=== PATIENT | male | born 1995 | race American Indian/Alaskan Native ===

== ENCOUNTER 2018-08-14 08:11 | Emergency (ER) | payer SELFPAY ==
[2018-08-14 08:15] VITALS: BP 113/78
[2018-08-14] MEDS ORDERED: NORCO 5/325 PO ONE (08:45)
--- NOTE | 2018-08-14 08:45 | Emergency Department Report ---
Earache (Pediatric) - HPI Chief Complaint: Earache Stated Complaint: EAR PAIN Time Seen by Provider: 08/14/18 08:44 Duration: 2 Days Location: Right Severity: Mild Symptoms: No URI, No Sore Throat, No Trauma to EAC, No History of Moisture in Ear, No Fever, No Vomiting, No Cough, No Shortness of Breath Other History: 22 year old comes to er with right ear pain. no fever. no cough, cold, congestion. no trauma. non toxic, ambulatory and without fever. ED Review of Systems ROS: Stated complaint: EAR PAIN Other details as noted in HPI Comment: All other systems reviewed and negative ENT: as per HPI, ear pain Pediatric Past Medical History - Chronic Health Problems Hx Asthma: No Hx Diabetes: No Hx HIV: No Hx Renal Disease: No Hx Sickle Cell Disease: No Hx Seizures: No - Immunizations Immunizations Up to Date: Yes Peds Earache exam - Exam General: Vital signs noted. No distress. Alert and acting appropriately. HEENT: Yes Moist Mucous Membranes, No Pharyngeal Erythema, No Pharyngeal Exudates, No Rhinorrhea, No Conjuctival Injection, No Frontal Tenderness, No Maxillary Tenderness Ear: Right TM Erythema, Right EAC Pain, Right Cerumen Impaction Peds Neck exam: Adenopathy: No, Supple: Yes Peds Lung exam: Good Air Exchange: Yes, Wheezes: No, Stridor: No, Cough: No, Nasal Flaring: No, Retractions: No, Use of Accessory Muscles: No Heart: Yes Regular, No Murmur Peds abdomen: Abdominal Tenderness: No, Peritoneal Signs: No, Normal Bowel Sounds: Yes, Distention: No Peds Skin Exam: Rash: No, Eczema: No Neurologic: Alert and oriented, no deficits. Musculoskeletal: Unremarkable. ED Course Vital Signs 08/14/18 08:14 Temperature 98.2 F Pulse Rate 79 Respiratory 18 Rate Blood Pressure 113/78 [Right] O2 Sat by Pulse 100 Oximetry ED Medical Decision Making - Medical Decision Making Vital Signs 08/14/18 08/14/18 08:14 08:58 Temperature 98.2 F Pulse Rate 79 Respiratory 18 14 Rate Blood Pressure 113/78 [Right] O2 Sat by Pulse 100 Oximetry irrigated ear dc home with dc plan of care Critical care attestation.: If time is entered above; I have spent that time in minutes in the direct care of this critically ill patient, excluding procedure time. ED Disposition Clinical Impression: Impacted cerumen Disposition: DC-01 TO HOME OR SELFCARE Is pt being admited?: No Does the pt Need Aspirin: No Condition: Stable Instructions: Cerumen Impaction (ED) Additional Instructions: HYDRATE WELL WITH WATER MEDS ORDERED DIET TOLERATED FOLLOW UP PCP REFERRAL BELOW NO Q TIPS USE CERUMENEX TO CLEAN THE EARS FOLLOW UP PCP IF PERSISTS Prescriptions: Amoxicillin 500 mg PO BID #20 capsule Referrals: RONAK ARCE MD [Primary Care Provider] - 3-5 Days Forms: Accompanied Note, Work/School Release Form(ED) Time of Disposition: 09:27
[2018-08-14] MEDS ORDERED: COLACE PO ONE (09:30)
== END 2018-08-14 10:25 | disposition home or self-care (01) ==
LOC: ED 08:11
DX: H61.21 Impacted cerumen, right ear (principal)
CPT/HCPCS: 99282

== ENCOUNTER 2018-12-30 08:56 | Emergency (ER) | payer SELFPAY ==
[2018-12-30 09:03] VITALS: BP 133/83
--- NOTE | 2018-12-30 09:14 | Emergency Department Report ---
ED Abdominal Pain HPI - General Chief Complaint: Abdominal Pain Stated Complaint: STOMACH PAIN Time Seen by Provider: 12/30/18 09:12 Source: patient Mode of arrival: Ambulatory Limitations: No Limitations - History of Present Illness Initial Comments: Patient is a 23-year-old male that presents emergency room with complaints of abdominal pain 2 days. Patient states the pain is worsening. He states the pain is a 3-4 out of 10 at this time. He states the pain is tenderness with movement. Patient states the pain is better with rest and worse with movement. Patient states pain is also worse with vomiting. Patient also complains of nausea and vomiting. Patient states had 2 bowel movements since Monday of normal consistency. Patient denies past medical history. Patient denies allergies. MD Complaint: abdominal pain -: Sudden Location: diffuse Radiation: none Migration to: no migration Severity scale (0 -10): 4 Quality: stabbing Consistency: constant Improves With: rest Worsens With: vomiting, movement Associated Symptoms: nausea, vomiting. denies: diarrhea, fever, chills, constipation, dysuria, hematemesis, hematochezia, melena, hematuria, syncope - Related Data Previous Rx's Medication Instructions Recorded Last Taken Type Amoxicillin 500 mg PO BID #20 capsule 08/14/18 Unknown Rx Ciprofloxacin HCl [Ciprofloxacin 500 mg PO Q12HR 10 Days #20 tab 12/30/18 Unknown Rx TAB] Ondansetron [Zofran Odt] 4 mg PO Q6HR PRN #10 tab.rapdis 12/30/18 Unknown Rx Allergies Allergy/AdvReac Type Severity Reaction Status Date / Time No Known Allergies Allergy Verified 08/14/18 08:53 ED Review of Systems ROS: Stated complaint: STOMACH PAIN Other details as noted in HPI Constitutional: denies: chills, fever Eyes: denies: eye pain, eye discharge, vision change ENT: denies: ear pain, throat pain Respiratory: denies: cough, shortness of breath, wheezing Cardiovascular: denies: chest pain, palpitations Endocrine: no symptoms reported Gastrointestinal: abdominal pain, nausea, vomiting. denies: diarrhea Genitourinary: denies: urgency, dysuria Musculoskeletal: denies: back pain, joint swelling, arthralgia Skin: denies: rash, lesions Neurological: denies: headache, weakness, paresthesias Psychiatric: denies: anxiety, depression Hematological/Lymphatic: denies: easy bleeding, easy bruising ED Past Medical Hx - Past Medical History Previous Medical History?: No Hx Diabetes: No Hx Renal Disease: No Hx Sickle Cell Disease: No Hx Seizures: No Hx Asthma: No Hx HIV: No - Surgical History Past Surgical History?: No - Family History Family history: no significant - Social History Smoking Status: Current Every Day Smoker Substance Use Type: None - Medications Home Medications: Home Medications Medication Instructions Recorded Confirmed Last Taken Type Amoxicillin 500 mg PO BID #20 capsule 08/14/18 Unknown Rx Ciprofloxacin HCl [Ciprofloxacin 500 mg PO Q12HR 10 Days #20 tab 12/30/18 Unkno wn Rx TAB] Ondansetron [Zofran Odt] 4 mg PO Q6HR PRN #10 tab.rapdis 12/30/18 Unknown Rx ED Physical Exam - General Limitations: No Limitations General appearance: alert, in no apparent distress - Head Head exam: Present: atraumatic, normocephalic - Eye Eye exam: Present: normal appearance - ENT ENT exam: Present: mucous membranes moist - Neck Neck exam: Present: normal inspection - Respiratory Respiratory exam: Present: normal lung sounds bilaterally. Absent: respiratory distress - Cardiovascular Cardiovascular Exam: Present: regular rate, normal rhythm. Absent: systolic murmur, diastolic murmur, rubs, gallop - GI/Abdominal GI/Abdominal exam: Present: soft, tenderness (generalized tenderness), normal bowel sounds - Rectal Rectal exam: Present: deferred - Extremities Exam Extremities exam: Present: normal inspection - Back Exam Back exam: Present: normal inspection - Neurological Exam Neurological exam: Present: alert, oriented X3 - Psychiatric Psychiatric exam: Present: normal affect, normal mood - Skin Skin exam: Present: warm, dry, intact, normal color. Absent: rash ED Course Vital Signs 12/30/18 12/30/18 09:01 09:08 Temperature 97.9 F Pulse Rate 90 Respiratory 16 16 Rate Blood Pressure 133/83 [Left] O2 Sat by Pulse 98 Oximetry - Reevaluation(s) Reevaluation #1: I discussed all results with patient. I discussed plan of care with patient. Patient tolerated by mouth intake. Patient states she is feeling better. Patient agrees with plan of care. Patient is stable for discharge. Patient will be discharged home. Patient given discharge instructions. Patient voiced understanding of discharge instructions 12/30/18 11:40 ED Medical Decision Making - Lab Data Result diagrams: 12/30/18 09:40 12/30/18 09:40 - Radiology Data Radiology results: report reviewed CT abdomen pelvis w con INDICATION / CLINICAL INFORMATION: Abdominal Pain. TECHNIQUE: Axial CT imaging of abdomen and pelvis was obtained with IV contrast. Coronal and sagittal reformatted imaging obtained and reviewed. All CT scans at this location are performed using CT d ose reduction for ALARA by means of automated exposure control. COMPARISON: None available. FINDINGS: CT abdomen with contrast demonstrates normal appearance of the liver, spleen, pancreas, kidneys, and adrenal glands. No obvious gallbladder pathology or biliary dilatation. CT pelvis with contrast demonstrates a few fluid-filled prominent small bowel loops in the inferior pelvis but no abnormal dilatation or evidence of mechanical bowel obstruction. No free air or free fluid identified. A normal appendix is present. Visualized lung bases are unremarkable. No significant osseous abnormality. IMPRESSION: 1. There are a few fluid-filled slightly prominent bowel loops in the inferior pelvis. This could represent enteritis. The remainder of the GI tract is unremarkable and there is no evidence for mechanical bowel obstruction. Please correlate clinically. 2. No additional abnormalities identified within the abdomen or pelvis. - Medical Decision Making Patient is a 23-year-old male that presents emergency room for abdominal pain, nausea and vomiting. Patient found to have gastroenteritis and a UTI. Patient' s labs done and unremarkable except for UTI. Patient's CT done and is unremarkable except for gastroenteritis. Patient given fluids, Zofran and Toradol and Rocephin in the emergency room. Patient responded well to therapy and patient's symptoms improved. Patient is stable for discharge. Patient will be discharged home - Differential Diagnosis gastritis. Nausea vomiting, abdominal pain. Critical Care Time: Yes Critical care attestation.: If time is entered above; I have spent that time in minutes in the direct care of this critically ill patient, excluding procedure time. Critical Care Time: 35 minutes ED Disposition Clinical Impression: Gastroenteritis, Hypokalemia Abdominal pain Qualifiers: Abdominal location: generalized Qualified Code(s): R10.84 - Generalized abdominal pain UTI (urinary tract infection) Qualifiers: Urinary tract infection type: acute cystitis Hematuria presence: with hematuria Qualified Code(s): N30.01 - Acute cystitis with hematuria Nausea & vomiting Qualifiers: Vomiting type: unspecified Vomiting Intractability: non-intractable Qualified Code(s): R11.2 - Nausea with vomiting, unspecified Disposition: DC-01 TO HOME OR SELFCARE Is pt being admited?: No Does the pt Need Aspirin: No Condition: Stable Instructions: Traveler's Diarrhea (ED), Gastroenteritis (ED), Acute Nausea and Vomiting (ED) Additional Instructions: Patient to follow up with primary care in 2-3 days. Patient to return if your condition worsens. Patient take meds as directed. Patient to eat a BRAT diet. Patient to take Tylenol or ibuprofen when necessary for pain. Patient increase water. Patient to rest. Prescriptions: Ciprofloxacin HCl [Ciprofloxacin TAB] 500 mg PO Q12HR 10 Days #20 tab Ondansetron [Zofran Odt] 4 mg PO Q6HR PRN #10 tab.rapdis PRN Reason: Nausea And Vomiting Referrals: PRIMARY CARE,MD [Primary Care Provider] - 2-3 Days YANDEL MATIAS MD [Staff Physician] - 2-3 Days Forms: Work/School Release Form(ED) Time of Disposition: 11:46
[2018-12-30] MEDS ORDERED: TORADOL IV ONE (09:27)
[2018-12-30] MEDS ORDERED: NACL 0.9% 1000 ML 1,000 ML IV ONE (09:27)
[2018-12-30] MEDS ORDERED: ZOFRAN IV ONE (09:27)
[2018-12-30 10:12] LABS: Basophils % (Auto) 0.4 % (0.0-1.8); Eosinophils % (Auto) 0.4 % (0.0-4.3); Hematocrit 45.3 % (35.5-45.6); Hemoglobin 15.8 gm/dl (11.8-15.2); Lymphocytes # (Auto) 1.2 K/mm3 (1.2-5.4); Lymphocytes % (Auto) 11.7 % (13.4-35.0); Mean Corpuscular HGB Conc 35 % (32-34); Mean Corpuscular Volume 84 fl (84-94); Monocytes # (Auto) 0.5 K/mm3 (0.0-0.8); Monocytes % (Auto) 5.2 % (0.0-7.3); Platelet Count 197 K/mm3 (140-440); Red Blood Count 5.43 M/mm3 (3.65-5.03)
[2018-12-30 10:18] LABS: Alanine Aminotransferase 15 units/L (7-56); Albumin 4.9 g/dL (3.9-5); BUN/Creatinine Ratio 13; Bilirubin,Direct 0.2 mg/dL (0-0.2); Blood Urea Nitrogen 12 mg/dL (9-20); Calcium 10.2 mg/dL (8.4-10.2); Hemolysis Index 15
[2018-12-30 10:25] LABS: Bilirubin,Urine NEG (Negative); Blood,Urine NEG (Negative); Color,Urine Yellow (Yellow); Mucus,Urine 3+ /HPF
--- NOTE | 2018-12-30 11:11 | Cat Scan Report ---
CT abdomen pelvis w con INDICATION / CLINICAL INFORMATION: Abdominal Pain. TECHNIQUE: Axial CT imaging of abdomen and pelvis was obtained with IV contrast. Coronal and sagittal reformatte d imaging obtained and reviewed. All CT scans at this location are performed using CT dose reduction for ALARA by means of automated exposure control. COMPARISON: None available. FINDINGS: CT abdomen with contrast demonstrates normal appearance of the liver, spleen, pancreas, kidneys, and adrenal glands. No obvious gallbladder pathology or biliary dilatation. CT pelvis with contrast demonstrates a few fluid-filled prominent small bowel loops in the inferior p [place] but no abnormal dilatation or evidence of mechanical bowel obstruction. No free air or free flu id identified. A normal appendix is present. Visualized lung bases are unremarkable. No significant osseous abnormality. IMPRESSION: 1. There are a few fluid-filled slightly prominent bowel loops in the inferior pelvis. This could rep resent enteritis. The remainder of the GI tract is unremarkable and there is no evidence for packaging mechanic al bowel obstruction. Please correlate clinically. 2. No additional abnormalities identified within the abdomen or pelvis. Signer Name: Vaishali Slater MD Signed: 12/30/2018 11:07 AM Workstation Name: [id number]
[2018-12-30] MEDS ORDERED: ROCEPHIN/NS 1 GM/50 ML 1 GM/50 ML BAG IV ONE (11:31)
== END 2018-12-30 11:58 | disposition home or self-care (01) ==
LOC: ED 08:56
DX: K52.9 Noninfective gastroenteritis and colitis, unspecified (principal); N39.0 Urinary tract infection, site not specified; F17.200 Nicotine dependence, unspecified, uncomplicated
CPT/HCPCS: 36415; 74177; 80048; 80076; 81001; 85025; 87086; 96361; 96365; 96375; 99284; J0696; J1885; J2405; J7030; Q9967